=== PATIENT | female | born 1985 | race American Indian/Alaskan Native ===

== ENCOUNTER 2019-06-14 19:39 | Emergency (ER) | payer SELFPAY ==
[2019-06-14 19:45] VITALS: BP 145/60
--- NOTE | 2019-06-14 20:12 | Emergency Department Report ---
Chief Complaint: Sore Throat Stated Complaint: SORE THROAT Time Seen by Provider: 06/14/19 20:06 - HPI History of Present Illness: This is a 34 y.o. F. that presents to the ER with sore throat and cough for 3-4 days. Patient reports a history of recurrent strep throat with no PCP follow up. Patient denies difficulty swallowing, nausea, vomiting, chest pain, SOB, headache, fever, chills, drooling or hoarseness. Patient denies any other symptoms. - ROS Review of Systems: Review of Systems: ROS: Stated complaint: Sore throat and cough Other details as noted in HPI Comment: All other systems reviewed and negative Constitutional: Cough and sore throat. denies: chills, fever Respiratory: denies: cough, shortness of breath. Cardiovascular: denies: chest pain Gastrointestinal: denies: nausea, vomiting Musculoskeletal: denies: myalgia - Exam Vital Signs: Vital Signs 06/14/19 19:42 Temperature 98.6 F Pulse Rate 76 Respiratory 20 Rate Blood Pressure 145/60 O2 Sat by Pulse 99 Oximetry Physical Exam: - General Limitations: No Limitations General appearance: alert, in no apparent distress, obese ENT exam: Present: Erythematous posterior pharynx, uvula midline, no peritonsular swelling or exudate, mucous membranes moist, no tenderness on percussion of sinuses Neck exam: Present: normal inspection Respiratory exam: Present: normal lung sounds bilaterally. Absent: respiratory distress, wheezes, rales, rhonchi, stridor Cardiovascular Exam: Present: regular rate, normal rhythm Extremities exam: Present: normal inspection. Absent: pedal edema, calf tenderness Neurological exam: Present: alert, oriented X3 Psychiatric exam: Present: normal affect, normal mood Skin exam: Present: warm, dry, intact, normal color MSE screening note: Focused history and physical exam performed. Due to findings the following was ordered: ED Medical Decision Making - Medical Decision Making This is a 34-year-old female that presents with sore throat and cough for 3-4 days. Patient is stable was examined by me. She is in no acute distress. Ramona ls are normal. Erythematous posterior pharynx, no peritonsiluar edema or exudate, uvula midline. There is no congestion and signs of post nasal drainage. Center score for strep is 1 points. Continue taking NSAIDs for pain control. Patient given handout for community resources and PCP. Follow-up with a primary care doctor in 3-5 days or if symptoms worsen return to emergency room as soon as possible. At time of discharge, the patient does not seem toxic or ill in appearance. No acute signs of distress noted. Patient agrees to discharge treatment plan of care. No further questions noted by the patient. ED Disposition for MSE Disposition: MED SCREENING EXAM-LEFT Is pt being admited?: No Condition: Stable Instructions: Pharyngitis (ED) Additional Instructions: Follow up with primary care doctor or urgent care from the list below. Referrals: [facility] [Outside] - 3-5 Days [facility] [Outside] - 3-5 Days [facility] [Outside] - 3-5 Days Time of Disposition: 20:13
== END 2019-06-14 20:15 | disposition left against medical advice (07) ==
LOC: ED 19:39
DX: J02.9 Acute pharyngitis, unspecified (principal); R05 Cough
CPT/HCPCS: 99282